=== PATIENT | male | born 1985 | race Caucasian/White ===

== ENCOUNTER 2020-07-26 15:44 | Outpatient (CLI) | payer OTHER, SELFPAY ==
--- NOTE | 2020-07-26 15:00 | USR_ITS ---
PROCEDURE INFORMATION: Exam: US Scrotum Exam date and time: 07/26/2020 3:30 PM Age: 34 years old Clinical indication: Inflammation; Scrotum; Additional info: N43.3 - hydrocele, unspecified TECHNIQUE: Imaging protocol: Real-time ultrasound of the scrotum and contents with color Doppler and image documentation. Total images: 92 COMPARISON: No relevant prior studies available. FINDINGS: Right testicle: Normal. No mass. No torsion. Normal vascular flow. Right testicle measures 4.2 cm x 2.3 cm x 2.9 cm. Left testicle: Normal. No mass. No torsion. Normal vascular flow. Left testicle measures 4.2 cm x 2.1 cm x 2.9 cm. Epididymides: Normal. Scrotum: Small volume left hydrocele. Small left varicocele. Other findings: Suspected right inguinal hernia containing fat only versus lipoma. Sonographic dimensions of the structure in question 60 mm x 25 mm x 50 mm. US/US scrotum [id number] IMPRESSION: 1. Suspected right inguinal hernia containing fat only versus lipoma. 2. Small left hydrocele and varicocele.
== END 2020-07-26 15:45 | disposition home or self-care (01) ==
LOC: RAD 15:51
PROVIDERS: PCP Registered Nurse; Visit Provider Registered Nurse
DX: N43.3 Hydrocele, unspecified (principal); I86.1 Scrotal varices
CPT/HCPCS: 76870

== ENCOUNTER → 2020-08-04 09:02 | Outpatient (BNVA) | payer OTHER, SELFPAY | PROVIDERS: PCP Registered Nurse; Visit Provider Surgery | DX: Z01.810 Encounter for preprocedural cardiovascular examination (principal); K40.20 Bilateral inguinal hernia, without obstruction or gangrene, not specified as recurrent | CPT/HCPCS: 87635 ==

== ENCOUNTER 2020-08-10 07:17 | Day surgery (SDC) | payer OTHER, SELFPAY ==
[2020-08-09 13:47] VITALS: BMI 28.7
[2020-08-10] VITALS (12 sets, daily range): BP systolic 106–142; BP diastolic 74–99; PULSE 60–87; RESP 14–20; TEMP 36.2–36.6; O2SAT 91–98
--- NOTE | 2020-08-10 07:43 | W.PM.OPSUD ---
Surgery/Procedure H&P Update DATE OF PROCEDURE: August 10, 2020 DATE H&P PERFORMED: 07/29/20 H&P UPDATE INFORMATION: I have reviewed H&P completed within last 30 days, I have examined patient prior to procedure and No changes to prior documentation PREOP DIAGNOSIS: Bilateral inguinal hernia PLANNED PROCEDURE: Operation Date: 08/10/20 08:35 Proposed Procedures p Laparoscopic Inguinal Hernia Repair [id number] K40.20(Bilateral) - Walter Fung MD
[2020-08-10] MEDS: sodium chloride 0.9% 1,000 ML 30 ML IV (07:47)
[2020-08-10] MEDS: scopolamine 1.5 Patch 1 PATCH TRANSDERMA (07:47)
[2020-08-10] MEDS: vancomycin 1,000 MG in sodium chloride 0.9% 250 ML 250 MG IV (07:49)
--- NOTE | 2020-08-10 07:51 | P.ANESASSM_ITS ---
Pre-Anesthetic Assessment Pre-Anesthetic Assessment: Height/Weight: Height 1.91 m Weight 104.326 kg Temp Pulse Resp BP Pulse Ox 97.9 F 66 16 142/99 96 08/10/20 07:28 08/10/20 07:28 08/10/20 07:28 08/10/20 07:28 08/10/20 07:28 Preop Diagnosis: Bilateral inguinal hernia Proposed Procedure: Operation Date: 08/10/20 08:35 Proposed Procedures p Laparoscopic Inguinal Hernia Repair [id number] K40.20(Bilateral) - Walter Fung MD Was Beta Magdalena taken within 24 hours: N/A Was Clonidine taken within 24 hours: N/A Last intake: Intake Last Liquid Date 08/09/20 Last Liquid Time 22:00 Last Solid Date 08/09/20 Last Solid Time 20:30 Social: Social History: No alcohol and No tobacco Exam: Pre-Anes Outpt Exam: alert, oriented x 3, clear to auscultation bilaterally and regular rate & rhythm Airway: Submandibular: WNL Cervical ROM: WNL MP: 2 Dentition: Full History/ROS: No significant history except as noted Anesthetic Plan: ASA status: 1 Anesthesia: General Risk of > 500 ml blood loss (7ml/kg in children): No Meds/Allergies Current Medications: Current Medications Generic Name Dose Route Start Last Admin Trade Name Freq PRN Reason Stop Dose Admin Vancomycin HCl 1,0 00 mg/ 250 mls @ 250 mls /hr 08/10/20 07:21 08/10/20 07:49 Sodium Chloride IV 08/10/20 08:20 250 mls/hr [employer]OUS[employer]IST[employer] ONE Administration Protocol Sodium Chloride 1,000 mls @ 30 ml s/hr 08/10/20 07:30 08/10/20 07:47 Sodium Chloride 0.9% IV 08/11/20 07:29 30 mls/hr .Q24H STELLA Administration PFSH Anesthesia PFSH: Medical History (Updated 07/29/20 @ 17:36 by Walter Fung MD) H/O Vancleave spotted fever Surgical History (Updated 07/29/20 @ 08:38 by Walter Fung MD) History of knee surgery 2004 Family History (Updated 07/26/20 @ 14:31 by Jeri Valdez LPN) Mother Hypothyroidism Social History (Updated 07/26/20 @ 14:33 by Jeri Valdez LPN) Smoking and tobacco status: smoker, details unknown smokeless tobacco Smokeless tobacco user: chewing tobacco Alcohol intake: never Adopted: No Caregiver/support person: No Lives independently: No Household members: spouse and children Marital status: service: No Current occupational status: employed History of recent travel: Yes Sexually active: Yes Current gender identity: Male Data Anesthesia Cardiac Studies: No Data to Display
[2020-08-10] MEDS: meperidine 50 mg/mL INJ 12.5 MG IVP (09:31)
--- NOTE | 2020-08-10 09:31 | PM.OP ---
Operative Report Date of procedure: August 10, 2020 Pre-op Diagnosis: Bilateral inguinal hernia Post-op Diagnosis: 1. Small reducible indirect left inguinal hernia 2. Large incarcerated indirect right inguinal hernia Procedure Done: Laparoscopic total extraperitoneal repair of bilateral indirect inguinal hernia with Surgimax 3D 16 x 10cm mesh Pathology: none sent Surgeon: Walter Fung Anesthesia: General Condition: stable Disposition: PACU Procedure: The patient was taken to the operating room. After IV antibiotic was administered, the abdomen was prepped and draped in a sterile manner. Using a 15 blade, a 1.0 cm transverse incision was made infraumbilically on the left side. Subcutaneous tissue was divided using electrocautery and the anterior rectus sheath divided using an 11 blade. The rectus muscle was retracted laterally and the extraperitoneal space identified. A balloon dissector was used to open the preperitoneal space. A 11 mm port was placed and 12 mm of pneumoperitoneum was created. A 10 mm 30? scope was introduced and 5 mm ports were placed in the midline, one 2-fingerbreadths above the pubic symphysis and the other midway between these two ports under direct visualization. The dissection was then carried laterally on the left side where the iliopubic tract was identified. There was no femoral, obturator or direct hernia noted. The inferior epigastric artery was identified and dissection was carried posterior to it and laterally, the space was opened up to the level of the umbilicus superior to the anterior superior iliac spine. I then proceeded to dissect out the spermatic cord and the small indirect hernial sac was reduced . The dissection was carried laterally on the right side where the iliopubic tract was identified. There was no femoral, obturator or direct hernia noted. The inferior epigastric artery was identified and dissection was carried posterior to it and laterally, the space was opened up to the level of the umbilicus superior to the anterior superior iliac spine. I proceeded to dissect out the spermatic cord and the large indirect hernial sac was reduced . 16 x 10cm Surgimax 3D mesh was rolled and introduced through the 10 mm port and then rolled laterally on the left side and apposed well against the abdominal wall to cover the myopectineal orifice completely and secured with Securestraps. 16 x 10cm Surgimax 3D mesh was rolled and introduced through the 10 mm port and then rolled laterally on the right side and apposed well against the abdominal wall to cover the myopectineal orifice completely and secured with Securestraps. 10 Cc of 0.5% Marcaine was infiltrated into the preperitoneal space. The extraperitoneal space was desufflated under direct visualization to ensure no slippage of hernial sac under the mesh. All ports were removed, the anterior rectus fascia at the infraumbilical port closed using figure of eight 0 Vicryl sutures, subcutaneous tissue approximated using 3-0 Vicryl sutures and skin at all three port sites were closed using running subcuticular 4-0 Monocryl sutures and Dermabond. 10 mL of 0.5% Marcaine was infiltrated at the port sites. The patient was stable throughout the procedure.
--- NOTE | 2020-08-10 10:49 | SUR.PHASEI ---
0925- ORAL AIRWAY REMOVED, SIMPLE MASK IN PLACE AT 6LPM SAT 96%
--- NOTE | 2020-08-10 13:06 | ANE.PACU2 ---
Inpatient post-anesthesia follow up: Airway intact: Yes Vital signs: Temperature 97.1 F Pulse Rate 81 Respiratory Rate 18 Blood Pressure 119/82 Pulse Oximetry 96 Oxygen Delivery Me thod Room Air Oxygen Flow Rate 6 Fraction of Inspir ed Oxygen Hydration adequate: Yes Nausea and vomiting: No Pain level: 2 Mental status: Baseline
== END 2020-08-10 11:09 | disposition home or self-care (01) ==
PROVIDERS: PCP Registered Nurse; Visit Provider Surgery
PROC: (CPT 49650; principal; 2020-08-10 08:25)
DX: K40.30 Unilateral inguinal hernia, with obstruction, without gangrene, not specified as recurrent (principal); F17.220 Nicotine dependence, chewing tobacco, uncomplicated
CPT/HCPCS: 49650; 96365; C1781; J1100; J2175; J2250; J2405; J2550; J2704; J2710; J3010; J3370; J3490; J7030; J7050